=== PATIENT | male | born 1945 | race Caucasian/White ===

== ENCOUNTER → 2018-04-06 | Outpatient (CLI) | payer MEDICARE, OTHER ==
[~2018-04-06] MED LIST: OMNIPAQUE 350 MG/ML, 100ML BOTTLE ONE
== END | disposition home or self-care (01) ==
LOC: CFH 12:50
PROVIDERS: ATTEND Genetic Counselor, MS
DX: N40.0 Benign prostatic hyperplasia without lower urinary tract symptoms (principal); N13.5 Crossing vessel and stricture of ureter without hydronephrosis; N13.4 Hydroureter
CPT/HCPCS: 74177; Q9967

== ENCOUNTER 2018-04-23 00:56 | Inpatient (IN) | payer MEDICARE, OTHER ==
[~2018-04-23] VITALS: Ht 172.7 cm; Wt 100.0 kg
[2018-04-23] VITALS (7 sets, daily range): BP systolic 131–166; BP diastolic 73–92
[2018-04-23] MEDS ORDERED: LEFL20TA16 PO (01:33)
[2018-04-23] MEDS ORDERED: SULF500T36 PO (01:33)
[2018-04-23 02:03] LABS: BASOPHILS # (AUTO) 0.07 x10^3/uL (0-0.1); BASOPHILS % (AUTO) 1 % (0-1); EOSINOPHILS # (AUTO) 0.28 x10^3/uL (0-0.4); EOSINOPHILS % (AUTO) 4 % (1-7); LYMPHOCYTES # (AUTO) 1.89 x10^3/uL (1-3.4); LYMPHOCYTES % (AUTO) 26 % (22-44); MD NO; MEAN CORPUSCULAR HEMOGLOBIN 32.8 pg (27.5-34.5); MEAN CORPUSCULAR HGB CONC 34.2 g/dL (33.2-36.2); MEAN PLATELET VOLUME 8.4 fL (7.4-10.4); MONOCYTES # (AUTO) 0.68 x10^3/uL (0.2-0.8); MONOCYTES % (AUTO) 9 % (2-9); NEUTROPHILS # (AUTO) 4.38 x10^3/uL (1.8-6.8); NEUTROPHILS % (AUTO) 60 % (42-75); PLATELET COUNT 215 x10^3/uL (130-400); RED BLOOD COUNT 4.45 x10^6/uL (4.38-5.82); RED CELL DISTRIBUTION WIDTH 13.5 % (9.4-14.8)
[2018-04-23 02:14] LABS: ALANINE AMINOTRANSFERASE 31 U/L (12-78); ALBUMIN 2.9 g/dL (3.4-5.0); ANION GAP 7 mmol/L (5-15); CALCIUM 8.7 mg/dL (8.5-10.1); CHLORIDE 114 mmol/L (98-107); CREATININE 1.25 mg/dL (0.7-1.3)
[2018-04-23 02:18] LABS: ALKALINE PHOSPHATASE 68 U/L (45-117); BILIRUBIN,TOTAL 0.3 mg/dL (0.2-1.0); TOTAL PROTEIN 5.8 g/dL (6.4-8.2)
[2018-04-23] MEDS ORDERED: ASPIRIN 81 MG TABLET CHEW PO ONE (03:00)
[2018-04-23] MEDS ORDERED: ONDANSETRON 2MG/ML, 2ML IVPush PRN (03:30)
[2018-04-23] MEDS ORDERED: MORPHINE SULFATE 4 MG/ML, 1ML IVPush PRN (03:30)
[2018-04-23] MEDS ORDERED: ASPIRIN 325 MG TABLET EC PO ONE (04:00)
[2018-04-23] MEDS ORDERED: NITROGLYCERIN 0.4 MG/SPRAY SL PRN (04:00)
[2018-04-23] MEDS ORDERED: NITROGLYCERIN 0.4 MG BOTTLE (25 TABS) SL PRN (04:00)
[2018-04-23] MEDS ORDERED: morphine SULFATE 10 MG/ML, 1ML IV PRN (04:00)
[2018-04-23] MEDS ORDERED: hydrALAzine 20 MG/ML, 1ML IVPush PRN (04:00)
[2018-04-23] MEDS ORDERED: HEPARIN 5,000 UNITS/ML, 1ML IV ONE (04:00)
[2018-04-23] MEDS ORDERED: NITROGLYCERIN SINGLE TAB 0.4 MG SL PRN (04:00)
[2018-04-23] MEDS ORDERED: BISACODYL 5 MG EC TABLET PO PRN (04:00)
[2018-04-23] MEDS: INSULIN LISPRO 100 UNITS/ML, PEN SQ-INSULIN SCH ×5 (04:00→20:03)
[2018-04-23 04:16] LABS: CHOLESTEROL, TOTAL 135 mg/dL (140-239); TRIGLYCERIDES 316 mg/dL (50-200); VLDL CHOLESTEROL 63 mg/dL (0-25)
[2018-04-23 04:19] LABS: CHOL/HDL RATIO 5.4; HDL CHOL % 19 % (26-37); HDL CHOLESTEROL (DIRECT) 25 mg/dL (40-60); LDL CHOLESTEROL,CALCULATED 47 mg/dL (54-169); LDL/HDL RATIO 1.9 (0.5-3.0)
[2018-04-23 04:21] LABS: TROPONIN I 0.402 ng/mL (0.000-0.045)
[2018-04-23 05:58] LABS: TROPONIN I 0.455 ng/mL (0.000-0.045)
[2018-04-23] MEDS: HEPARIN 25,000 UNITS/500ML PMX 500 ML IV PRN (06:01)
[2018-04-23] MEDS ORDERED: INSULIN REGULAR 100 UNITS/ML, 3ML VIAL SQ-INSULIN SCH (07:00)
[2018-04-23] MEDS ORDERED: POTASSIUM CHLORIDE 20 MEQ TAB.ER.PRT PO ONE (08:00)
[2018-04-23 08:53] LABS: HEMOGLOBIN A1C 5.8 % (4.2-6.3)
[2018-04-23] MEDS ORDERED: METOPROLOL TARTRATE 100 MG TABLET PO SCH (09:00)
[2018-04-23] MEDS ORDERED: SODIUM CHLORIDE FLUSH 10ML SYR IVF SCH (09:00)
[2018-04-23] MEDS: CARVEDILOL 6.25 MG TABLET PO SCH ×2 (09:56→18:07)
[2018-04-23] MEDS: SULFASALAZINE 500 MG TABLET PO SCH (09:59)
[2018-04-23] MEDS: LEFLUNOMIDE 20 MG TABLET PO SCH (10:00)
[2018-04-23] MEDS: LISINOPRIL 10 MG TABLET PO SCH ×2 (10:00→20:02)
[2018-04-23 11:47] LABS: MICROSCOPIC NOT IND
[2018-04-23 11:52] LABS: CULTURE INDICATED? NO
[2018-04-23 12:30] LABS: TROPONIN I 0.567 ng/mL (0.000-0.045)
[2018-04-23] MEDS ORDERED: HYDR-3237 PO (12:52)
[2018-04-23] MEDS: HEPARIN 5,000 UNITS/ML, 1ML IV PRN ×2 (12:54→21:47)
[2018-04-23] MEDS: ATORVASTATIN 80 MG TABLET PO SCH (20:02)
[2018-04-24] VITALS (10 sets, daily range): BP systolic 107–196; BP diastolic 61–108
[2018-04-24] MEDS: HYDROcodone/APAP 5/325 TABLET PO PRN ×4 (03:54→23:36)
[2018-04-24] MEDS: HEPARIN 25,000 UNITS/500ML PMX 500 ML IV PRN (04:11)
[2018-04-24 04:17] LABS: BASOPHILS # (AUTO) 0.03 x10^3/uL (0-0.1); BASOPHILS % (AUTO) 0 % (0-1); EOSINOPHILS # (AUTO) 0.36 x10^3/uL (0-0.4); EOSINOPHILS % (AUTO) 5 % (1-7); LYMPHOCYTES # (AUTO) 2.27 x10^3/uL (1-3.4); LYMPHOCYTES % (AUTO) 31 % (22-44); MD NO; MEAN CORPUSCULAR HEMOGLOBIN 32.7 pg (27.5-34.5); MEAN CORPUSCULAR HGB CONC 33.9 g/dL (33.2-36.2); MEAN CORPUSCULAR VOLUME 96.5 fL (81-97); MEAN PLATELET VOLUME 8.5 fL (7.4-10.4); MONOCYTES % (AUTO) 10 % (2-9); NEUTROPHILS # (AUTO) 3.88 x10^3/uL (1.8-6.8); NEUTROPHILS % (AUTO) 54 % (42-75); PLATELET COUNT 205 x10^3/uL (130-400); RED CELL DISTRIBUTION WIDTH 13.6 % (9.4-14.8)
[2018-04-24 04:31] LABS: ALANINE AMINOTRANSFERASE 24 U/L (12-78); ALBUMIN 2.6 g/dL (3.4-5.0); ANION GAP 7 mmol/L (5-15); CALCIUM 8.2 mg/dL (8.5-10.1); CHLORIDE 115 mmol/L (98-107); CREATININE 0.85 mg/dL (0.7-1.3)
[2018-04-24 04:33] LABS: ALKALINE PHOSPHATASE 57 U/L (45-117); BILIRUBIN,TOTAL 0.5 mg/dL (0.2-1.0); TOTAL PROTEIN 5.2 g/dL (6.4-8.2)
[2018-04-24] MEDS: CARVEDILOL 6.25 MG TABLET PO SCH ×2 (05:24→17:12)
[2018-04-24] MEDS: ASPIRIN 325 MG TABLET EC PO SCH (05:24)
[2018-04-24] MEDS: HEPARIN 5,000 UNITS/ML, 1ML IV PRN (05:42)
[2018-04-24] MEDS ORDERED: POTASSIUM CHLORIDE 20 MEQ TAB.ER.PRT PO ONE ×2 (07:00→11:00)
[2018-04-24] MEDS: INSULIN LISPRO 100 UNITS/ML, PEN SQ-INSULIN SCH ×4 (07:00→20:39)
[2018-04-24] MEDS: SULFASALAZINE 500 MG TABLET PO SCH (08:30)
[2018-04-24] MEDS: LEFLUNOMIDE 20 MG TABLET PO SCH (08:31)
[2018-04-24] MEDS: LISINOPRIL 10 MG TABLET PO SCH ×2 (08:32→20:32)
[2018-04-24] MEDS ORDERED: SULF500T47 PO (08:41)
[2018-04-24] MEDS ORDERED: FENTANYL PF 100 MCG/2ML ONE (12:19)
[2018-04-24] MEDS ORDERED: MIDAZOLAM 1 MG/ML, 5ML ONE (12:19)
[2018-04-24] MEDS ORDERED: HEPARIN 1,000 UNITS/ML, 10ML ONE (12:20)
[2018-04-24] MEDS ORDERED: LIDOCAINE 2%, 2ML ONE (12:20)
[2018-04-24] MEDS ORDERED: PRASUGREL 10 MG TABLET ONE (12:20)
[2018-04-24] MEDS ORDERED: BIVALIRUDIN 250 MG ONE (12:20)
[2018-04-24] MEDS ORDERED: VERAPAMIL 2.5 MG/ML, 2ML ONE (12:20)
[2018-04-24] MEDS ORDERED: BIVALIRUDIN 250 MG in DEXTROSE 5% 50 ML IV SCH (13:45)
[2018-04-24] MEDS ORDERED: LABETALOL 5MG/ML, 20ML ONE (17:21)
[2018-04-24] MEDS ORDERED: LABETALOL 5MG/ML, 20ML IVPush ONE (17:30)
[2018-04-24] MEDS ORDERED: LABETALOL 5MG/ML, 20ML IVPush PRN (17:30)
[2018-04-24 20:03] LABS: TROPONIN I 0.525 ng/mL (0.000-0.045)
[2018-04-24] MEDS: ATORVASTATIN 80 MG TABLET PO SCH (20:31)
[2018-04-25 02:00] VITALS: BP 100/63
[2018-04-25] MEDS: CARVEDILOL 6.25 MG TABLET PO SCH ×2 (05:28→18:35)
[2018-04-25] MEDS: ASPIRIN 325 MG TABLET EC PO SCH (05:28)
[2018-04-25 06:07] LABS: ALBUMIN 2.6 g/dL (3.4-5.0); ANION GAP 9 mmol/L (5-15); CALCIUM 8.7 mg/dL (8.5-10.1); CHLORIDE 110 mmol/L (98-107)
[2018-04-25 06:21] LABS: CHOL/HDL RATIO 4.4; CHOLESTEROL, TOTAL 127 mg/dL (140-239); CREATININE 1.05 mg/dL (0.7-1.3); HDL CHOL % 23 % (26-37); HDL CHOLESTEROL (DIRECT) 29 mg/dL (40-60); LDL CHOLESTEROL,CALCULATED 68 mg/dL (54-169); LDL/HDL RATIO 2.3 (0.5-3.0); TRIGLYCERIDES 150 mg/dL (50-200); VLDL CHOLESTEROL 30 mg/dL (0-25)
[2018-04-25 06:23] LABS: HEMOGLOBIN A1C 5.7 % (4.2-6.3)
[2018-04-25] MEDS: INSULIN LISPRO 100 UNITS/ML, PEN SQ-INSULIN SCH ×4 (07:00→20:54)
[2018-04-25] MEDS: SULFASALAZINE 500 MG TABLET PO SCH (08:05)
[2018-04-25] MEDS: LEFLUNOMIDE 20 MG TABLET PO SCH (08:05)
[2018-04-25] MEDS: LISINOPRIL 10 MG TABLET PO SCH ×2 (08:06→20:53)
[2018-04-25 08:08] VITALS: BP 118/70
[2018-04-25] MEDS ORDERED: PRASUGREL 10 MG TABLET PO SCH (09:00)
[2018-04-25 13:13] VITALS: BP 100/1
[2018-04-25 15:18] VITALS: BP 110/68
[2018-04-25 18:34] VITALS: BP 132/77
[2018-04-25 20:00] VITALS: BP 112/69
[2018-04-25] MEDS: ATORVASTATIN 80 MG TABLET PO SCH (20:53)
[2018-04-26] MEDS: HYDROcodone/APAP 5/325 TABLET PO PRN (01:30)
[2018-04-26 02:36] VITALS: BP 124/64
[2018-04-26 05:04] LABS: BASOPHILS # (AUTO) 0.06 x10^3/uL (0-0.1); BASOPHILS % (AUTO) 1 % (0-1); EOSINOPHILS # (AUTO) 0.43 x10^3/uL (0-0.4); EOSINOPHILS % (AUTO) 5 % (1-7); LYMPHOCYTES # (AUTO) 2.27 x10^3/uL (1-3.4); LYMPHOCYTES % (AUTO) 28 % (22-44); MD NO; MEAN CORPUSCULAR HEMOGLOBIN 32.8 pg (27.5-34.5); MEAN CORPUSCULAR HGB CONC 34.3 g/dL (33.2-36.2); MEAN CORPUSCULAR VOLUME 95.8 fL (81-97); MEAN PLATELET VOLUME 8.4 fL (7.4-10.4); MONOCYTES # (AUTO) 0.92 x10^3/uL (0.2-0.8); MONOCYTES % (AUTO) 11 % (2-9); NEUTROPHILS # (AUTO) 4.38 x10^3/uL (1.8-6.8); NEUTROPHILS % (AUTO) 54 % (42-75); PLATELET COUNT 201 x10^3/uL (130-400); RED BLOOD COUNT 4.23 x10^6/uL (4.38-5.82); RED CELL DISTRIBUTION WIDTH 13.3 % (9.4-14.8)
[2018-04-26 05:11] LABS: ALBUMIN 2.7 g/dL (3.4-5.0); ANION GAP 7 mmol/L (5-15); CALCIUM 8.4 mg/dL (8.5-10.1); CHLORIDE 113 mmol/L (98-107)
[2018-04-26 05:16] LABS: ALANINE AMINOTRANSFERASE 22 U/L (12-78); ALKALINE PHOSPHATASE 54 U/L (45-117); BILIRUBIN,TOTAL 0.8 mg/dL (0.2-1.0); CREATININE 0.98 mg/dL (0.7-1.3); TOTAL PROTEIN 5.5 g/dL (6.4-8.2)
[2018-04-26] MEDS: ASPIRIN 325 MG TABLET EC PO SCH (05:47)
[2018-04-26] MEDS: CARVEDILOL 6.25 MG TABLET PO SCH (05:47)
[2018-04-26] MEDS: INSULIN LISPRO 100 UNITS/ML, PEN SQ-INSULIN SCH ×2 (07:00→11:37)
[2018-04-26 07:05] VITALS: BP 134/79
[2018-04-26] MEDS ORDERED: TICAGRELOR 90 MG TABLET PO SCH (09:00)
[2018-04-26] MEDS: SULFASALAZINE 500 MG TABLET PO SCH (09:30)
[2018-04-26] MEDS: LISINOPRIL 10 MG TABLET PO SCH (09:31)
[2018-04-26] MEDS: LEFLUNOMIDE 20 MG TABLET PO SCH (09:53)
[2018-04-26 12:51] VITALS: BP 160/85
[2018-04-26] MEDS ORDERED: LISI-167 PO (14:13)
[2018-04-26] MEDS ORDERED: TICA90TA PO (14:13)
[2018-04-26] MEDS ORDERED: ATOR-2 PO (14:13)
[2018-04-26] MEDS ORDERED: ASPI-650 PO (14:13)
[2018-04-26] MEDS ORDERED: CARV6.2512 PO (14:14)
[2018-04-26] MEDS ORDERED: CLOP75TA52 PO (15:18)
[2018-04-26] MEDS ORDERED: ASPI-515 PO (15:18)
== END 2018-04-26 16:40 | disposition home or self-care (01) | DRG 246 ==
LOC: ED 01:08 → EDIP 03:16 → 5SO 04:21 → DCLOUNGE 04-26 15:51
PROVIDERS: ADMIT Family Medicine; ATTEND Family Medicine
PROC: 027034Z Dilation of Coronary Artery, One Artery with Drug-eluting Intraluminal Device, Percutaneous Approach (ICD-10-PCS; principal; 2018-04-24)
PROC: 4A023N7 Measurement of Cardiac Sampling and Pressure, Left Heart, Percutaneous Approach (ICD-10-PCS; 2018-04-24)
PROC: 4A033BC Measurement of Arterial Pressure, Coronary, Percutaneous Approach (ICD-10-PCS; 2018-04-24)
PROC: B2111ZZ Fluoroscopy of Multiple Coronary Arteries using Low Osmolar Contrast (ICD-10-PCS; 2018-04-24)
PROC: B2151ZZ Fluoroscopy of Left Heart using Low Osmolar Contrast (ICD-10-PCS; 2018-04-24)
DX: I21.4 Non-ST elevation (NSTEMI) myocardial infarction (principal); I50.33 Acute on chronic diastolic (congestive) heart failure; I63.9 Cerebral infarction, unspecified; E44.0 Moderate protein-calorie malnutrition; N20.2 Calculus of kidney with calculus of ureter; R47.01 Aphasia; E66.9 Obesity, unspecified; Z68.33 Body mass index [BMI] 33.0-33.9, adult; E78.5 Hyperlipidemia, unspecified; N28.9 Disorder of kidney and ureter, unspecified; E11.9 Type 2 diabetes mellitus without complications; E78.1 Pure hyperglyceridemia; E87.6 Hypokalemia; I11.0 Hypertensive heart disease with heart failure; I25.110 Atherosclerotic heart disease of native coronary artery with unstable angina pectoris; M06.9 Rheumatoid arthritis, unspecified; R56.9 Unspecified convulsions; Z79.4 Long term (current) use of insulin; Z82.49 Family history of ischemic heart disease and other diseases of the circulatory system; Z87.442 Personal history of urinary calculi; Z87.891 Personal history of nicotine dependence; Z90.49 Acquired absence of other specified parts of digestive tract
CPT/HCPCS: 36415; 70450; 70551; 71046; 74176; 80048; 80053; 80061; 81003; 82040; 82962; 83036; 83735; 84100; 84484; 85025; 85520; 93005; 93306; 93308; 93458; 93571; 93880; 99156; 99157; 99285; C1769; C1894; C9600; J0583; J1644; J2250; J2405; J3010; J3490; 92523-GN; C1725; C1874; C1887; J0360; J1815

== ENCOUNTER → 2018-09-26 | Outpatient (CLI) | payer MEDICARE, OTHER ==
[~2018-09-26] MED LIST changes: +ASPI-515 PO; +ASPI-650 PO; +ATOR-2 PO; +CARV6.2512 PO; +CLOP75TA52 PO; +FENTANYL PF 100 MCG/2ML ONE; +FLUMAZENIL 0.1 MG/1 ML, 5ML ONE; +HYDR-3237 PO; +LEFL20TA16 PO; +LISI-167 PO; +MIDAZOLAM 1 MG/ML, 5ML ONE; +NALOXONE 1 MG/ML, 2ML ONE; -OMNIPAQUE 350 MG/ML, 100ML BOTTLE ONE; +SULF500T36 PO; +SULF500T47 PO; +TICA90TA PO
== END | disposition home or self-care (01) ==
LOC: RAD 11:41
PROVIDERS: ATTEND Genetic Counselor, MS
DX: M48.061 Spinal stenosis, lumbar region without neurogenic claudication (principal)
CPT/HCPCS: 72148; 99156; 99157; J2250; J3010; J2310

== ENCOUNTER → 2018-12-21 | Outpatient (CLI) | payer MEDICARE, OTHER | END | disposition home or self-care (01) | LOC: RAD 11:40 | PROVIDERS: ATTEND Neurological Surgery | DX: M51.34 Other intervertebral disc degeneration, thoracic region (principal); R26.89 Other abnormalities of gait and mobility | CPT/HCPCS: 72110; 72141; 72146; 99156; 99157; J2250; J3010; J2310 ==

== ENCOUNTER → 2019-04-17 | Outpatient (CLI) | payer MEDICARE, OTHER ==
[~2019-04-17] MED LIST changes: -FENTANYL PF 100 MCG/2ML ONE; -FLUMAZENIL 0.1 MG/1 ML, 5ML ONE; -MIDAZOLAM 1 MG/ML, 5ML ONE; -NALOXONE 1 MG/ML, 2ML ONE
== END | disposition home or self-care (01) ==
LOC: CFH 10:03
PROVIDERS: ATTEND Nurse Practitioner Family
DX: F17.211 Nicotine dependence, cigarettes, in remission (principal)
CPT/HCPCS: 76706

== ENCOUNTER → 2020-08-21 | Outpatient (CLI) | payer MEDICARE, OTHER | END | disposition home or self-care (01) | LOC: CFH 13:24 | PROVIDERS: ATTEND Internal Medicine Cardiovascular Disease | DX: I35.1 Nonrheumatic aortic (valve) insufficiency (principal); I10 Essential (primary) hypertension; E78.5 Hyperlipidemia, unspecified; Z98.61 Coronary angioplasty status | CPT/HCPCS: 93306 ==

== ENCOUNTER → 2020-09-16 | Outpatient (CLI) | payer MEDICARE, OTHER ==
[~2020-09-16] MED LIST changes: +AMINOPHYLLINE 25 MG/ML, 10ML ONE; +REGADENOSON 0.4 MG/5 ML SYRINGE ONE
== END | disposition home or self-care (01) ==
LOC: CFH 11:58
PROVIDERS: ATTEND Internal Medicine Cardiovascular Disease
DX: I10 Essential (primary) hypertension (principal); Z98.61 Coronary angioplasty status
CPT/HCPCS: 78452; 93017; A9502; J0280; J2785

== ENCOUNTER 2021-07-16 11:42 | Outpatient (CLI) | payer MEDICARE, OTHER ==
[~2021-07-16 11:42] MED LIST changes: -AMINOPHYLLINE 25 MG/ML, 10ML ONE; -ASPI-515 PO; -ASPI-650 PO; +ASPI-963 PO; +ASPI325T20 PO
== END 2021-07-16 23:59 | disposition home or self-care (01) ==
LOC: CFH 11:42
PROVIDERS: ATTEND Internal Medicine Cardiovascular Disease
DX: I10 Essential (primary) hypertension (principal); Z98.61 Coronary angioplasty status
CPT/HCPCS: 78452; 93017; A9502; J2785